=== PATIENT | male | born 1945 | race Caucasian/White ===

== ENCOUNTER → 2017-11-12 14:33 | Outpatient (CLI) | payer MEDICARE, OTHER, SELFPAY ==
[2017-11-12 16:22] LABS: Cholesterol 192 mg/dL (200); High Density Lipoprotein 59 mg/dL; Triglycerides 87 mg/dL; Very Low Density Lipoprotein 17 mg/dL (5-40)
== END ==
PROVIDERS: Family Provider Family Medicine; PCP Family Medicine; Visit Provider Family Medicine
DX: E78.00 Pure hypercholesterolemia, unspecified (principal)
CPT/HCPCS: 36415; 80061

== ENCOUNTER → 2020-05-26 11:23 | Outpatient (CLI) | payer MEDICARE, SELFPAY ==
[2020-05-26 12:16] LABS: Absolute Lymphocyte Count 1.87 X10^3/uL (0.83-4.51); Absolute Neutrophil Count 3.5 X10^3/uL (2.0-7.7); Basophil# 0.05 X10^3/uL; Basophil% 0.8 % (0-1); Eosinophil# 0.24 X10^3/uL; Eosinophils% 3.8 % (0-5); Hematocrit 47.4 % (40-54); Hemoglobin 15.8 g/dL (13.0-16.5); Lymphocyte # 1.87 X10^3/ul (4.0); Lymphocyte % 29.6 % (19-41); Mean Corp Hgb Conc 33.3 g/dL (32-36); Mean Corpuscular Hgb 31.6 pg (27.0-32.0); Mean Corpuscular Volume 94.8 fL (80-94); Monocyte# 0.63 X10^3/uL; NRBC Flagged by Analyzer 0 % (0-5); Neutrophil # 3.51 X10^3/uL (2.7-7.7); Neutrophil % 55.6 % (47-70); Platelet Count 212 K/mm3 (150-450); RBC Distribution Width CV 11.4 % (11.6-14.6); RBC Distribution Width SD 39.6 fl (35.1-43.9); White Blood Count 6.3 K/mm3 (4.4-11.0)
[2020-05-26 12:21] LABS: Color, Urine Yellow (Yellow); Glucose, Dipstick Normal (Normal); Ketone-Dipstick Negative (Negative); Leukocyte Esterase-Dipstick Negative /ul (Negative); Nitrite-Dipstick Negative (Negative); Occult Blood-Urine Negative /ul (Negative); Protein-Dipstick Negative (Negative); Urine Bilirubin Dipstick Negative (Negative); Urine Clarity Clear (Clear); Urine Urobilinogen Normal (Normal)
[2020-05-26 12:56] LABS: AST(SGOT) 17 U/L (15-37); Alanine Aminotransfer ALT/SGPT 22 U/L (16-61); Albumin, Serum 3.4 g/dL (3.2-5.0); Alkaline Phosphatase 83 U/L (45-117); Anion Gap 5 (5-15); BUN 15 mg/dL (7-18); BUN/Creat Ratio 18.9 RATIO (10-20); Calcium,Total 8.4 mg/dL (8.5-10.1); Chloride 107 mmol/L (98-107); Cholesterol 197 mg/dL (200); Creatinine, Serum 0.79 mg/dL (0.70-1.30); EST Glomerular Filtration Rate 102 mL/min (>60); Est Glom Filt Rate - Afr Amer 123 mL/min (>60); Globulin 3.3 g/dL (2.2-4.2); Glucose 98 mg/dL (74-106); High Density Lipoprotein 53 mg/dL; PSA,Total - Annual Screen 3.15 ng/mL (0.00-4.00); Protein, Total 6.7 g/dL (6.4-8.2); Sodium Level 138 mmol/L (136-145); Triglycerides 124 mg/dL; Very Low Density Lipoprotein 25 mg/dL (5-40)
== END ==
PROVIDERS: PCP Family Medicine; Referring Provider Family Medicine; Visit Provider Family Medicine
DX: Z00.00 Encounter for general adult medical examination without abnormal findings (principal); E78.5 Hyperlipidemia, unspecified; Z12.5 Encounter for screening for malignant neoplasm of prostate
CPT/HCPCS: 36415; 80053; 80061; 81002; 84153; 85025; G0103

== ENCOUNTER → 2021-06-01 11:01 | Outpatient (CLI) | payer MEDICARE, SELFPAY ==
[2021-06-01 11:39] LABS: Absolute Neutrophil Count 3.8 X10^3/uL (2.0-7.7); Basophil# 0.07 X10^3/uL; Basophil% 1.1 % (0-1); Eosinophil# 0.23 X10^3/uL; Eosinophils% 3.6 % (0-5); Hematocrit 46.7 % (40-54); Hemoglobin 16.2 g/dL (13.0-16.5); Lymphocyte % 23.6 % (19-41); Mean Corp Hgb Conc 34.7 g/dL (32-36); Mean Corpuscular Hgb 33.1 pg (27.0-32.0); Mean Corpuscular Volume 95.3 fL (80-94); Mean Platelet Vol. 10.3 fl (6.2-12.0); Monocyte# 0.73 X10^3/uL; Monocyte% 11.5 % (0-10); NRBC Flagged by Analyzer 0 % (0-5); Neutrophil # 3.82 X10^3/uL (2.7-7.7); Platelet Count 224 K/mm3 (150-450); RBC Distribution Width CV 11.7 % (11.6-14.6); RBC Distribution Width SD 40.8 fl (35.1-43.9); White Blood Count 6.4 K/mm3 (4.4-11.0)
[2021-06-01 12:26] LABS: AST(SGOT) 13 U/L (15-37); Alanine Aminotransfer ALT/SGPT 18 U/L (16-61); Albumin, Serum 3.6 g/dL (3.2-5.0); Alkaline Phosphatase 81 U/L (45-117); Anion Gap 7 (5-15); BUN 21 mg/dL (7-18); BUN/Creat Ratio 25.9 RATIO (10-20); Chloride 109 mmol/L (98-107); Cholesterol 220 mg/dL (200); Creatinine, Serum 0.81 mg/dL (0.70-1.30); EST Glomerular Filtration Rate 99 mL/min (>60); Est Glom Filt Rate - Afr Amer 120 mL/min (>60); Globulin 3.7 g/dL (2.2-4.2); Glucose 104 mg/dL (74-106); High Density Lipoprotein 57 mg/dL; PSA,Total - Annual Screen 3.72 ng/mL (0.00-4.00); Potassium 4.1 mmol/L (3.5-5.1); Protein, Total 7.3 g/dL (6.4-8.2); Sodium Level 140 mmol/L (136-145); Triglycerides 92 mg/dL; Very Low Density Lipoprotein 18 mg/dL (5-40)
== END ==
LOC: LAB 11:03
PROVIDERS: PCP Family Medicine; Visit Provider Family Medicine
DX: Z00.00 Encounter for general adult medical examination without abnormal findings (principal); E78.5 Hyperlipidemia, unspecified; Z12.5 Encounter for screening for malignant neoplasm of prostate
CPT/HCPCS: 36415; 80053; 80061; 84153; 85025; G0103

== ENCOUNTER 2022-03-04 13:19 | Emergency (ER) | payer MEDICARE, SELFPAY ==
[2022-03-04 13:21] VITALS: BP 140/96; PULSE 76; RESP 16; TEMP 36.7; O2SAT 96; BMI 28.3
--- NOTE | 2022-03-04 14:28 | ED.VIS.LOWEX ---
HPI History of Present Illness HPI Narrative: Atraumatic left lower femur and knee pain only with ambulation. Chief Complaint: Lower Extremity Injury Informant: patient Occured/Mechanism Mechanism/Context: No injury and No blunt trauma Onset/Context/Timing Onset: Weeks Context: Gradual Onset Timing: Intermittent Quality of Pain: Sharp Current Severity: Mild Maximum Severity: Mild Worsened by: Weightbearing. Associated Symptoms Associated Symptoms: Negative for Parasthesia, Weakness or Loss of Funtion Narrative Narrative: 76-year-old male history of prior left hip surgery about 12 years ago. 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 Said last 3 weeks he has had pain in his left lower thigh and knee with walking. He limps to ambulate. He denies any falls or trauma. He denies any fever or chills. He denies any swelling or redness. Otherwise he states has been feeling well. He is an active male. Prior similar symptoms: No Recent Illness/Hospitalization: No PFSH PFSH Medical History no medical history no medical history Home Medications hydrocodone-acetaminophen 5-325mg 5mg-325mg 1 - 2 tab PO Q4H PRN PRN Moderate Pain (4-6/10) ##30 04/12/15 [Rx Last Taken Unknown] rivaroxaban 10 mg tablet (Xarelto) 10 mg PO DAILY@0600 ##21 04/12/15 [Rx Last Taken Unknown] sennosides 8.6 mg-docusate sodium 50 mg tablet (Stool Softener-Stimulant Laxative) 2 tab PO BID ##0 04/12/15 [Rx Last Taken Unknown] Allergy/AdvReac Type Severity Reaction Status Date / Time No Known Allergies Allergy Verified 03/04/22 13:20 Social History Smoking Status: Former smoker ROS ROS ED ROS Narrative Denies recent illness. Review of Systems ROS Unobtainable: Denies due to encephalopathy Constitutional Constitutional ED: Denies chills Eyes Eyes: Denies blurry vision ENT ENT ED: Denies ear pain Cardiovascular Cardiovascular: Denies chest pain Respiratory/Chest Respiratory/Chest: Denies cough Gastrointestinal Gastrointestinal: Denies abdominal pain Genitourinary Genitourinary ED: Denies dysuria Musculoskeletal Musculoskeletal: Denies arthralgias Integumentary Denies abscess Neurologic Neurologic: Denies headache(s) Psychiatric Psychiatric: Denies anxiety Endocrine Endocrinology: Denies polydipsia Hematologic/Lymphatic Hematologic/Lymphatic: Denies easy bleeding Allergic/Immunologic Allergic/Immunologic ED: Denies mouth swelling EXAM Physical Exam Narrative Exam Narrative: 71-year-old male no acute distress. Exam normal. Heart lung abdominal exam normal. Left hip nontender full range of motion. No redness or swelling. He has full flexion-extension left knee. No effusion. ACL, PCL [place] also intact. He has dorsi plantarflexion of his ankle and foot on the left nontender no edema. His exam is normal lying in bed when he gets up to walk he limps and states the pain is in his distal lower thigh LLE. Const Vital Signs: 03/04/22 13:21 Temperature 98.0 F Temperature Source Temporal Pulse Rate 76 Respiratory Rate 16 Blood Pressure 140/96 H Blood Pressure Mean 110 Pulse Ox 96 Oxygen Delivery Method Room Air Positive well nourished and well developed; Negative for obese, cachectic, contractures or unkempt General Appearance ED: well developed; Negative for unkempt, cachectic or contractures Nutritional Appearance: Negative for cachectic or obese HEENT Reports moist mucous membranes normocephalic and atraumatic; Negative for trauma or tenderness Eyes PERRL Neck full ROM and supple Thyroid: Negative for tender Lymph Lymphatic: Negative for other Chest Wall inspection of chest normal and palpation of chest normal Chest: Negative for other Resp normal respiratory effort and clear to auscultation bilaterally Effort and Inspection: Negative for pain with movement Auscultation: Negative for rales or rhonchi Percussion: Negative for other Cardio regular rate, regular rhythm, S1 normal heart sound, S2 normal heart sound and no murmurs Rate: Negative for bradycardia Rhythm: Negative for abnormal rhythm GI non-tender, non-distended and no masses Inspection: Negative for abdominal distention Auscultation: normoactive bowel sounds Palpation: soft; Negative for tender Back/Spine no CVA tenderness General Back: Negative for CVA tenderness Cervical Spine: Negative for cervical spine tenderness Thoracic Spine / Upper Back: Negative for thoracic spinal tenderness Lumbar Spine / Lower Back: Negative for lumbar spinal tenderness Extremity normal to inspection and full ROM Extremity Narrative: Pain in his left lower thigh and knee with walking. But normal exam otherwise. General Extremety ED: Negative for cyanosis or edema General Extremity: Negative for cyanosis or edema Neuro oriented x3 and moves all extremities Sensorium / Orientation: alert, oriented to person, oriented to place and oriented to time; Negative for orientation impaired, confused, lethargic or stuporous Motor Exam: strength 5/5 throughout Psych mental status grossly normal Appearance: Negative for unkempt Speech: No other Mood & Affect: Negative for anxious Skin no wounds Lesions: no lesions Rashes: no rashes Trauma: Negative for abrasion MDM MDM MDM Narrative Medical decision making narrative: 76-year-old male complaining of left lower thigh and knee pain with ambulation only. He has had a prior hip replacement 12 years ago. Denies any fever or chills. Denies any redness or swelling. Exam normal except when he walks he limps. X-rays being obtained. Repeat exam unchanged at 4:42 PM. Patient be discharged to home with outpatient follow-up with orthopedics. Both his x-rays were negative. Radiography Diagnostic Testing: Clinical Impression(s) from Imaging Studies Femur X-Ray 03/04/22 14:40 IMPRESSION: Status post left total hip replacement. There is good alignment. Electronically Signed: Andi Cosby MD at 15:00 EDT , Knee X-Ray 03/04/22 14:40 IMPRESSION: Normal x-ray examination of the knee. Electronically Signed: Andi Cosby MD at 14:58 EDT , Left knee x-ray 4 view shows no acute abnormality interpreted by myself and the radiologist. Left hip x-ray shows no acute abnormality. Prosthetic hip. Read by both the radiologist and myself. Discharge Plan Triage Chief Complaint: Lower Extremity Injury ED Provider: Ryland Castro Dx/Rx/DC Orders Clinical Impression: Acute leg pain Instructions: ED Meniscal Injury Knee Poss Prescriptions: No Action hydrocodone-acetaminophen 1 TABLET tablet 1 - 2 tab PO Q4H PRN PRN (Reason: Moderate Pain (4-6/10)) Qty: 30 0RF Label Comments: pain sennosides-docusate sodium [Stool Softener-Stimulant Laxat] 1 TABLET tablet 2 tab PO BID Qty: 0 0RF Label Comments: stool softener rivaroxaban [Xarelto] 10 MG tablet 10 mg PO DAILY@0600 Qty: 21 0RF Label Comments: blood thinner Rx Instructions: CONT FOR 28 DAYS Primary Care Provider: Lb Donis Referrals: Lb Donis MD [Primary Care Provider] - As Needed Boyd Ruiz MD [STAFF PHYSICIAN] - As soon as possible Activity Restrictions/Additional Instructions: Your x-rays and exam today are normal. You may have a cartilage injury in your left knee that causes a limp when you walk. Follow-up with an orthopedic doctor for further evaluation of your knee. Disposition Disposition: Home, Self Care
--- NOTE | 2022-03-04 14:40 | RAD_ITS ---
STUDY: X-RAY - LEFT KNEE REASON FOR EXAM: Male, 76 years old. Atraumatic left knee pain TECHNIQUE: 4 view(s) of the knee. COMPARISON: None. FINDINGS: Normal visualized distal femur. Normal visualized proximal tibia and fibula. Normal proximal tibiofibular articulation. Normal medial femorotibial compartment. Normal lateral femorotibial compartment. Normal patellofemoral articulation. The soft tissue structures are unremarkable. RAD/Knee 4 or More Views IMPRESSION: Normal x-ray examination of the knee. Electronically Signed: Andi Cosby MD at 14:58 EDT ,
--- NOTE | 2022-03-04 14:40 | RAD_ITS ---
STUDY: X-RAY - LEFT FEMUR REASON FOR STUDY: Male, 76 years old. Pain TECHNIQUE: 4 view(s) of the femur. COMPARISON: None. FINDINGS: The patient is status post left total hip replacement. There is good alignment. Normal visualized soft tissue structure. RAD/Femur Min 2 Views IMPRESSION: Status post left total hip replacement. There is good alignment. Electronically Signed: Andi Cosby MD at 15:00 EDT ,
== END 2022-03-04 16:52 | disposition home or self-care (01) ==
PROVIDERS: Emergency Provider Emergency Medicine; PCP Family Medicine; Visit Provider Emergency Medicine
DX: M79.662 Pain in left lower leg (principal); Z87.891 Personal history of nicotine dependence
CPT/HCPCS: 73552; 73564; 99282

== ENCOUNTER → 2023-09-23 | Outpatient (CLI) | payer MEDICARE, SELFPAY ==
[2023-09-23 10:49] LABS: Absolute Neutrophil Count 4.6 X10^3/uL (2.0-7.7); Basophil# 0.08 X10^3/uL; Basophil% 1.1 % (0-1); Eosinophils% 2.8 % (0-5); Hematocrit 45.1 % (40-54); Hemoglobin 15.8 g/dL (13.0-16.5); Mean Corpuscular Hgb 32.4 pg (27.0-32.0); Mean Corpuscular Volume 92.4 fL (80-94); Mean Platelet Vol. 9.8 fl (6.2-12.0); Monocyte# 0.72 X10^3/uL; Monocyte% 10.1 % (0-10); NRBC Flagged by Analyzer 0 % (0-5); Neutrophil # 4.63 X10^3/uL (2.7-7.7); Neutrophil % 64.7 % (47-70); Platelet Count 204 K/mm3 (150-450); RBC Distribution Width CV 11.7 % (11.6-14.6); RBC Distribution Width SD 39.3 fl (35.1-43.9); Red Blood Count 4.88 M/mm3 (4.6-6.2); White Blood Count 7.2 K/mm3 (4.4-11.0)
[2023-09-23 11:02] LABS: Erythrocyte Sedimentation Rate 11 mm/hr (0-20)
[2023-09-23 11:20] LABS: CRP 3.07 mg/L (0.0-3.0)
== END | disposition home or self-care (01) ==
LOC: LAB 10:05
PROVIDERS: PCP Family Medicine; Referring Provider Physician Assistant; Visit Provider Physician Assistant
DX: M79.605 Pain in left leg (principal)
CPT/HCPCS: 36415; 85025; 85652; 86140

== ENCOUNTER → 2023-10-13 | Outpatient (CLI) | payer MEDICARE, SELFPAY ==
--- NOTE | 2023-10-13 09:07 | NM_ITS ---
CLINICAL: 77-year-old male with history of painful left hip arthroplasty. WHOLE BODY 99m Tc MDP RADIONUCLIDE BONE SCINTIGRAPHY COMPARISON: FINDINGS: Following the intravenous administration of 25.5 mCi of 99m Tc MDP, whole body bone images reveal: 1. Increased tracer uptake is identified in the right wrist, the bilateral hands, the acromioclavicular compartment of both shoulders, the region of the eighth thoracic vertebra, the elbows bilaterally. 2. The remaining skeletal structures are scintigraphically unremarkable with normal-appearing renal images and urinary bladder activity identified. Enhanced tracer distribution is defined in the left maxilla consistent with periodontal disease and/or periostitis. NM/Bone Scan Three Phase IMPRESSION: 1. The increase in radiopharmaceutical concentration defined in the right wrist, bilateral hands, the shoulders bilaterally, right-left elbows and eighth thoracic vertebra is most consistent with degenerative arthrosis. Plain film radiography correlation may be of benefit in the region of the thoracic spine. 2. There is no definitive typical scintigraphic evidence of skeletal metastatic disease. Electronically Signed: Bassem Fraire DO at 23:35 EST ,
--- OUTSIDE RECORDS SUMMARY | 2023-10-13 09:25 | XMS RPT_ITS | CCD ---
Author Name Unknown Address [address] [place] [address] Organization [facility] Care Team Providers Care Needle Loom Operator Helper Name Role Phone RD ALLRED Unavailable Unavailable ERICA, LB Unavailable Unavailable ERICA, LB Unavailable Unavailable ERICA, LB Martinez Unavailable Erica HARLEY, Lb Shafer Primary Care Provider Erica HARLEY, Lb Shafer Primary Care Provider Lb Maldonado MD Primary Care Provider LB MALDONADO Attending Unavailab le ERICA, LB SHAFER Primary Care Unavailab le ERICALB Attending Unavailab le ERICA, LB SHAFER Primary Care Unavailab le ERICA, LB SHAFER Attending Unavailab le ERICA, LB SHAFER Primary Care Unavailab le ERICALB Attending Unavailab le ERICA, LB SHAFER Primary Care Unavailab le Lb Maldonado MD Primary Care Provider LB MALDONADO Primary Care Unavailab le LB MALDONADO Referring Unavailab le LB MALDONADO Primary Care Unavailab GUILLERMO Mcneil Referring Unavailable LB MALDONADO Primary Care Unavailab le LB MALDONADO Primary Care Unavailab le Medications Current Medications Medication Drug Class(es) Dates Sig (Normalized) Sig (Original) methylPREDNISolone (1 source) Corticosteroid Start: 06-26-2023 End: 07-02-2023 methylPREDNISolone (MEDROL, SARAVANAN,) 4 mg Dose-Pack Follow dosing instructions, take with food. 21 tablet 0 06/26/2023 07/02/2023 Active Completed/Discontinued Medications Medication Drug Class(es) Dates Sig (Normalized) Sig (Original) [id number] 200 actuat albuterol 0.09 mg/actuat metered dose inhaler (4 sources) beta2-Adrenergic Agonist Start: 10-25-2016 End: 06-05-2022 take 2 puff(s) by inhalation every four hours as needed albuterol HFA (PROVENTIL HFA, VENTOLIN HFA) 90 mcg/actuation inhaler Indications: Wheezing , Cough Inhale 2 Puffs as instructed every 4 hours as needed. 1 Inhaler 0 08/19/2019 06/05/2022 Discontinued Problems Active Problems Problem Classification Problem Date Documented Da te Episodic/Chronic Administrative/social admission (2 sources) Advance directive discussed with patient; Translations: [Other specified counseling] Onset: 05-28-2023 05-28-2023 Episodic Disorders of lipid metabolism (13 sources) Pure hypercholesterolemi a; Translations: [Pure hypercholesterolemi a, unspecified] Onset: 04-02-2017 Chronic Hyperplasia of prostate (8 sources) Benign prostatic hyperplasia; Translations: [Benign prostatic hyperplasia without lower urinary tract symptoms] Onset: 04-02-2017 06-05-2022 Chronic Other connective tissue disease (1 source) Thigh pain; Translations: [Pain in left thigh] 03-17-2023 Episodic Other connective tissue disease (1 source) Pain in left lower limb; Translations: [Pain in left leg] 06-26-2023 Episodic Other screening for suspected conditions (not mental disorders or infectious disease) (8 sources) Raised prostate specific antigen; Translations: [Elevated prostate specific antigen [PSA]] Onset: 05-02-2017 12-04-2022 Episodic Residual codes; unclassified (1 source) Procedure not done; Translations: [Procedure and treatment not carried out, unspecified reason] Episodic Screening and history of mental health and substance abuse codes (1 source) Encounter for screening for depression; Translations: [Encounter for screening for depression] Onset: 05-28-2023 Episodic Unclassified (1 source) Results Onset: 07-22-2022 Past or Other Problems Problem Classification Problem Date Documented Da te Episodic/Chronic Immunizations and screening for infectious disease (7 sources) Patient encounter status; Translations: [Encounter for immunization] Onset: 06-05-2022 Episodic Other connective tissue disease (1 source) Pain in left thigh; Translations: [Acute thigh pain, left] Onset: 03-17-2023 Episodic Results Test Name Value Interpretation Reference Range Facil ity Vital Signs Date Time Vital Sign Value Performing Clinician Blas macias 06-26-2023 10:25-0500 Body temperature 97.59 [degF] Kiara Butt STUDENT FINANCIAL SERVICES COUNSELOR.OLAP DEVELOPER Work Phone: [facility] 06-26-2023 10:25-0500 Body weight 74.66 kg Kiara Butt STUDENT FINANCIAL SERVICES COUNSELOR.OLAP DEVELOPER Work Phone: [facility] 06-26-2023 10:25-0500 Diastolic blood pressure 82 mm[Hg] Kiara Butt STUDENT FINANCIAL SERVICES COUNSELOR.OLAP DEVELOPER Work Phone: [facility] 06-26-2023 10:25-0500 Heart rate 98 /min Kiara Butt STUDENT FINANCIAL SERVICES COUNSELOR.OLAP DEVELOPER Work Phone: [facility] 06-26-2023 10:25-0500 Respiratory rate 16 /min Kiara Butt STUDENT FINANCIAL SERVICES COUNSELOR.OLAP DEVELOPER Work Phone: [facility] 06-26-2023 10:25-0500 SaO2% (BldA) [Mass fraction] 96 % Kiara Butt STUDENT FINANCIAL SERVICES COUNSELOR.OLAP DEVELOPER Work Phone: [facility] 06-26-2023 10:25-0500 Systolic blood pressure 136 mm[Hg] Kiara Butt STUDENT FINANCIAL SERVICES COUNSELOR.OLAP DEVELOPER Work Phone: [facility] 05-28-2023 15:41-0400 Body height 160 cm Lb Maldonado MD Work Phone: [facility] 05-28-2023 15:41-0400 Body temperature 97.5 [degF] Lb Maldonado MD Work Phone: [facility] 05-28-2023 15:41-0400 Body weight 74.11 kg Lb Maldonado MD Work Phone: [facility] 05-28-2023 15:41-0400 Diastolic blood pressure 84 mm[Hg] Lb Maldonado MD Work Phone: [facility] 05-28-2023 15:41-0400 Heart rate 82 /min Lb Maldonado MD Work Phone: [facility] 05-28-2023 15:41-0400 Respiratory rate 16 /min Lb Maldonado MD Work Phone: [facility] 05-28-2023 15:41-0400 SaO2% (BldA) [Mass fraction] 96 % Lb Maldonado MD Work Phone: [facility] 05-28-2023 15:41-0400 Systolic blood pressure 132 mm[Hg] Lb Maldonado MD Work Phone: [facility] 03-17-2023 09:24-0400 Body temperature 97.81 [degF] Guillermo De Jesus MD Work Phone: [facility] 03-17-2023 09:24-0400 Body weight 72.48 kg Guillermo De Jesus MD Work Phone: [facility] 03-17-2023 09:24-0400 Diastolic blood pressure 82 mm[Hg] Guillermo De Jesus MD Work Phone: [facility] 03-17-2023 09:24-0400 Heart rate 80 /min Guillermo De Jesus MD Work Phone: [facility] 03-17-2023 09:24-0400 Respiratory rate 16 /min Guillermo De Jesus MD Work Phone: [facility] 03-17-2023 09:24-0400 SaO2% (BldA) [Mass fraction] 97 % Guillermo De Jesus MD Work Phone: [facility] 03-17-2023 09:24-0400 Systolic blood pressure 144 mm[Hg] Guillermo De Jesus MD Work Phone: [facility] 12-04-2022 15:33-0400 Body height 160 cm Lb Maldonado MD Work Phone: [facility] 12-04-2022 15:33-0400 Body temperature 97.5 [degF] Lb Maldonado MD Work Phone: [facility] 12-04-2022 15:33-0400 Body weight 73.14 kg Lb Maldonado MD Work Phone: [facility] 12-04-2022 15:33-0400 Diastolic blood pressure 70 mm[Hg] Lb Maldonado MD Work Phone: [facility] 12-04-2022 15:33-0400 Heart rate 63 /min Lb Maldonado MD Work Phone: [facility] 12-04-2022 15:33-0400 Respiratory rate 18 /min Lb Maldonado MD Work Phone: [facility] 12-04-2022 15:33-0400 SaO2% (BldA) [Mass fraction] 99 % Lb Maldonado MD Work Phone: [facility] 12-04-2022 15:33-0400 Systolic blood pressure 116 mm[Hg] Lb Maldonado MD Work Phone: [facility] 07-22-2022 15:28-0500 Body height 160 cm Lb Maldonado MD Work Phone: [facility] 07-22-2022 15:28-0500 Body temperature 98.2 [degF] Lb Maldonado MD Work Phone: [facility] 07-22-2022 15:28-0500 Body weight 76.2 kg Lb Maldonado MD Work Phone: [facility] 07-22-2022 15:28-0500 Diastolic blood pressure 72 mm[Hg] Lb Maldonado MD Work Phone: [facility] 07-22-2022 15:28-0500 Heart rate 70 /min Lb Maldonado MD Work Phone: [facility] 07-22-2022 15:28-0500 Respiratory rate 16 /min Lb Maldonado MD Work Phone: [facility] 07-22-2022 15:28-0500 SaO2% (BldA) [Mass fraction] 98 % Lb Maldonado MD Work Phone: [facility] 07-22-2022 15:28-0500 Systolic blood pressure 120 mm[Hg] Lb Maldonado MD Work Phone: [facility] 06-05-2022 14:44-0400 Body height 160 cm Lb Maldonado MD Work Phone: [facility] 06-05-2022 14:44-0400 Body temperature 97.59 [degF] Lb Maldonado MD Work Phone: [facility] 06-05-2022 14:44-0400 Body weight 74.39 kg Lb Maldonado MD Work Phone: [facility] 06-05-2022 14:44-0400 Diastolic blood pressure 78 mm[Hg] Lb Maldonado MD Work Phone: [facility] 06-05-2022 14:44-0400 Heart rate 78 /min Lb Maldonado MD Work Phone: [facility] 06-05-2022 14:44-0400 Respiratory rate 18 /min Lb Maldonado MD Work Phone: [facility] 06-05-2022 14:44-0400 SaO2% (BldA) [Mass fraction] 98 % Lb Maldonado MD Work Phone: [facility] 06-05-2022 14:44-0400 Systolic blood pressure 122 mm[Hg] Lb Maldonado MD Work Phone: [facility] 03-04-2022 11:53-0400 Body temperature 97.7 [degF] Javier Cabrera APRN.OLAP DEVELOPER Work Phone: [facility] 03-04-2022 11:53-0400 Body weight 73.48 kg Javier Cabrera STUDENT FINANCIAL SERVICES COUNSELOR.OLAP DEVELOPER Work Phone: [facility] 03-04-2022 11:53-0400 Diastolic blood pressure 74 mm[Hg] Javier Cabrera STUDENT FINANCIAL SERVICES COUNSELOR.OLAP DEVELOPER Work Phone: [facility] 03-04-2022 11:53-0400 Heart rate 70 /min Javier Cabrera STUDENT FINANCIAL SERVICES COUNSELOR.OLAP DEVELOPER Work Phone: [facility] 03-04-2022 11:53-0400 Respiratory rate 16 /min Javier Rick STUDENT FINANCIAL SERVICES COUNSELOR.OLAP DEVELOPER Work Phone: [facility] 03-04-2022 11:53-0400 SaO2% (BldA) [Mass fraction] 96 % Javier Rick STUDENT FINANCIAL SERVICES COUNSELOR.OLAP DEVELOPER Work Phone: [facility] 03-04-2022 11:53-0400 Systolic blood pressure 122 mm[Hg] Javier Cabrera STUDENT FINANCIAL SERVICES COUNSELOR.OLAP DEVELOPER Work Phone: [facility] Encounters Encounter Date Encounter Type Care Provider Facility Start: 06-26-2023 End: 06-26-2023 ambulatory LB MALDONADO Facility:[facility] Start: 06-26-2023 End: 06-26-2023 Patient encounter procedure Kiara Butt STUDENT FINANCIAL SERVICES COUNSELOR.OLAP DEVELOPER Work Phone: [facility] Procedures Date Procedure Procedure Detail Performing Clinician Start: 06-05-2022 INFLUENZA SEASONAL QUADRIVALENT HIGH DOSE AGE 65+ Lb Maldonado MD Work Phone: Plan of Treatment Date Care Activity Detail Author Start: 06-06-2027 LIPID SCREEN LIPID SCREEN [facility] Start: 06-03-2026 Diabetes Screening Diabetes Screenin [facility] Start: 06-06-2025 DIABETES SCREEN DIABETES SCREEN [facility] Start: 06-06-2025 Diabetes Screening Diabetes Screenin [facility] Start: 05-19-2024 LIPID SCREEN LIPID SCREEN [facility] Start: 05-28-2023 End: 07-28-2023 CBC W Auto Differential panel - Blood CBC + DIFF Lab Routine Screening for deficiency anemia Expected: 05/28/2023, Expires: 07/28/2023 [facility] Work Phone: Immunizations Immunization Date Immunization Notes Care Provider Robert mortensen 03-15-2023 pneumococcal (PCV20) vaccine, 20 valent (PREVNAR 20) Lb Maldonado MD Work Phone: [facility] 06-05-2022 influenza, high-dose , quadrivalent vaccine (FLUZONE HIGH DOSE QUADRIVALENT) Lb Maldonado MD Work Phone: [facility] 06-05-2022 influenza virus vacc ine, unspecified formulation Lb Maldonado MD Work Phone: [facility] 05-18-2019 influenza, injectabl e, quadrivalent, preservative free Lb Maldonado MD Work Phone: [facility] 05-18-2018 AS03 adjuvant Lb Maldonado MD Work Phone: [facility] 05-15-2017 influenza, injectabl e, quadrivalent, preservative free Lb Maldonado MD Work Phone: [facility] Payers Date Payer Category Payer Unknown [employer] S [employer] BL[employer] SHI[employer] ANTHEM MEDIBLUE O [id number] 2020-Present [phone] [id number] [place], [place] [address]O [id number] 2020 Unknown ANTHEM [employer] S [employer] BLUE SHIELD ANTHEM MEDIBLUE O [id number] 2020-Present [phone] [id number] [place], [place] [address] [id number] 2020 Unknown [id number] 2018 Medicare [id number] 2018 Unknown [id number] 1945 Unknown [id number] 1945 Unknown [id number] Social History Date Type Detail Facility Start: 10-25-2016 End: 12-04-2022 Tobacco smoking status NHIS Ex-smoker [facility] Start: 10-25-2016 End: 12-04-2022 Tobacco use and exposure Smokeless tobacco non-user [facility] Start: 1945 Sex Assigned At Not on file [facility] Start: 02-22-2022 End: 07-22-2022 Exposure to SARS-CoV-2 (event) Not sure [facility] History of tobacco use Current smoker [facility] Start: 06-05-2022 End: 06-26-2023 Alcohol intake Current drinker of alcohol (finding) [facility] Start: 06-05-2022 History SDOH Alcohol Frequency 3 [facility] Start: 06-05-2022 History SDOH Alcohol Std Drinks 1 [facility] Start: 06-05-2022 History SDOH Social Connections Phone 5 [facility] Start: 06-05-2022 History SDOH Social Connections Membership 2 [facility] Start: 06-05-2022 Alcohol Comment occasionaly [facility] History of tobacco use Passive smoker [facility] Start: 06-05-2022 End: 05-28-2023 History of Social function [facility] Start: 06-05-2022 End: 05-28-2023 Social connection and isolation panel [facility] Attends [employer] Not on file C [facility] Do you belong to any clubs or organizations such as druze groups, unions, fraternal or athletic groups, or school groups? No [facility] Are you now , , , , never or living with a partner? [facility] How often to you hav e a drink containing alcohol? 2-4 times a month [facility] How many standard dr inks containing alcohol do you have on a typical day? 1 or 2 [facility] How often do you hav e 6 or more drinks on 1 occasion? Never [facility] Do you feel stress - tense, restless, nervous, or anxious, or unable to sleep at night because your mind is troubled all the time - these days [OSQ] Not at all [facility] (I/We) worried whearelis er (my/our) food would run out before (I/we) got money to buy more. Never true [facility] How often to you hav e a drink containing alcohol? 2-3 time sa week [facility] Do you feel stress - tense, restless, nervous, or anxious, or unable to sleep at night because your mind is troubled all the time - these days [OSQ] To some extent [facility] Clinical Notes 03-04-2022 to 06-26-2023 Kiara Butt APRN.OLAP DEVELOPER - 06/26/2023 10:45 AM Mae Mcclelland LPN - 05/28/2023 4:00 PM Lb Last MD - 05/28/2023 3:56 PM Guillermo Diego MD - 03/17/2023 9:33 AM EDT Note Date & Type Note Facility 06-26-2023 Note HNO ID: [id number] Author: Kiara Butt APRN.OLAP DEVELOPER Service: ? Author Type: Nurse Practitioner Type: Progress Notes Filed: 06/26/2023 10:50 AM Note Text: This note was created using NoteWriter. Subjective Melinda Mcnair is a 77 year old male. 77 year old male with PMH hyperlipidemia presents for leg pain. Acute on chronic (citing this has happened in past and seen for same) This bout started yesterday Left upper leg Denies trauma or injury Started as dull ache, progressed. Used Iced and rest Today is it improving, citing that is what normally happens with prior bouts. He did not go to work today. The history is provided by the patient. No eyeglass inspector was used. Musculoskeletal Problem This is a recurrent problem. The current episode started yesterday. The problem occurs constantly. The problem has been gradually improving. Pertinent negatives include no abdominal pain, anorexia, arthralgias, change in bowel habit, chest pain, chills, congestion, coughing, diaphoresis, fatigue, fever, headaches, joint swelling, myalgias, nausea, neck pain, numbness, rash, sore throat, swollen glands, urinary symptoms, vertigo, visual change, vomiting or weakness. Nothing aggravates the symptoms. He has tried nothing for the symptoms. The treatment provided no relief. PAST MEDICAL HISTORY Diagnosis Date BPH (benign prostatic hyperplasia) Hyperlipidemia No past surgical history on file. ALLERGIES Patient has no known allergies. MEDICATIONS Ibuprofen 200 mg cap Take by mouth. methylPREDNISolone (MEDROL, SARAVANAN,) 4 mg Dose-Pack Follow dosing instructions, take with food. cyclobenzaprine (FLEXERIL) 10 mg tablet Take 1 tablet by mouth three times a day as needed for muscle spasm. No family history on file. Social History Tobacco Use Smoking status: Former Passive exposure: Past Smokeless tobacco: Never Vaping Use Vaping Use: Never used Substance Use Topics Alcohol use: Yes Comment: occasionaly Drug use: Not Currently Review of Systems Constitutional: Negative for chills, diaphoresis, fatigue and fever. HENT: Negative for congestion and sore throat. Respiratory: Negative for apnea, cough, choking and chest tightness. Cardiovascular: Negative for chest pain. Gastrointestinal: Negative for abdominal pain, anorexia, change in bowel habit, nausea and vomiting. Musculoskeletal: Negative for arthralgias, joint swelling, myalgias and neck pain. Skin: Negative for color change, pallor and rash. Allergic/Immunologic: Negative for food allergies and immunocompromised state. Neurological: Negative for vertigo, weakness, numbness and headaches. Hematological: Negative for adenopathy. Does not bruise/bleed easily. Psychiatric/Behavioral: Negative for agitation and behavioral problems. Objective BP 136/82 Pulse 98 Temp 36.4 ?C (97.6 ?F) Resp 16 Wt 74.7 kg (164 lb 9.6 oz) SpO2 96% BMI 29.16 kg/m? Physical Exam Vitals and nursing note reviewed. Constitutional: General: He is not in acute distress. Appearance: Normal appearance. He is not ill-appearing, toxic-appearing or diaphoretic. HENT: Head: Normocephalic and atraumatic. Right Ear: External ear normal. Left Ear: External ear normal. Nose: Nose normal. No congestion or rhinorrhea. Mouth/Throat: Mouth: Mucous membranes are moist. Pharynx: Oropharynx is clear. No oropharyngeal exudate or posterior oropharyngeal erythema. Eyes: General: Right eye: No discharge. Left eye: No discharge. Extraocular Movements: Extraocular movements intact. Conjunctiva/sclera: Conjunctivae normal. Pupils: Pupils are equal, round, and reactive to light. Cardiovascular: Rate and Rhythm: Normal rate and regular rhythm. Pulses: Normal pulses. Heart sounds: Normal heart sounds. No murmur heard. No friction rub. No gallop. Pulmonary: Effort: Pulmonary effort is normal. No respiratory distress. Breath sounds: Normal breath sounds. No stridor. No wheezing, rhonchi or rales. Chest: Chest wall: No tenderness. Abdominal: General: Abdomen is flat. There is no distension. Palpations: Abdomen is soft. There is no mass. Tenderness: There is no abdominal tenderness. There is no guarding or rebound. Hernia: No hernia is present. Musculoskeletal: General: No swelling, tenderness, deformity or signs of injury. Normal range of motion. Cervical back: Normal range of motion and neck supple. No rigidity or tenderness. Right lower leg: No edema. Left lower leg: No edema. Comments: Left upper thigh and femur with no ecchymosis. No swelling. No erythema. No redness No TTP Ambulatory Lymphadenopathy: Cervical: No cervical adenopathy. Skin: General: Skin is warm and dry. Capillary Refill: Capillary refill takes less than 2 seconds. Coloration: Skin is not jaundiced or pale. Findings: No bruising, lesion or rash. Neurological: General: No focal deficit present. Menta (more content not included)... [facility] 06-26-2023 History of Present illness Narrative This note was created using [employer]. Subjective Melinda Mcnair is a 77 year old male. 77 year old male with PMH hyperlipidemia presents for leg pain. Acute on chronic (citing this has happened in past and seen for same) This bout started yesterday Left upper leg Denies trauma or injury Started as dull ache, progressed. Used Iced and rest Today is it improving, citing that is what normally happens with prior bouts. He did not go to work today. The history is provided by the patient. No eyeglass inspector was used. Musculoskeletal Problem This is a recurrent problem. The current episode started yesterday. The problem occurs constantly. The problem has been gradually improving. Pertinent negatives include no abdominal pain, anorexia, arthralgias, change in bowel habit, chest pain, chills, congestion, coughing, diaphoresis, fatigue, fever, headaches, joint swelling, myalgias, nausea, neck pain, numbness, rash, sore throat, swollen glands, urinary symptoms, vertigo, visual change, vomiting or weakness. Nothing aggravates the symptoms. He has tried nothing for the symptoms. The treatment provided no relief. PAST MEDICAL HISTORY Diagnosis Date BPH (benign prostatic hyperplasia) Hyperlipidemia No past surgical history on file. ALLERGIES Patient has no known allergies. MEDICATIONS Ibuprofen 200 mg cap Take by mouth. methylPREDNISolone (MEDROL, SARAVANAN,) 4 mg Dose-Pack Follow dosing instructions, take with food. cyclobenzaprine (FLEXERIL) 10 mg tablet Take 1 tablet by mouth three times a day as needed for muscle spasm. No family history on file. Social History Tobacco Use Smoking status: Former Passive exposure: Past Smokeless tobacco: Never Vaping Use Vaping Use: Never used Substance Use Topics Alcohol use: Yes Comment: occasionaly Drug use: Not Currently Review of Systems Constitutional: Negative for chills, diaphoresis, fatigue and fever. HENT: Negative for congestion and sore throat. Respiratory: Negative for apnea, cough, choking and chest tightness. Cardiovascular: Negative for chest pain. Gastrointestinal: Negative for abdominal pain, anorexia, change in bowel habit, nausea and vomiting. Musculoskeletal: Negative for arthralgias, joint swelling, myalgias and neck pain. Skin: Negative for color change, pallor and rash. Allergic/Immunologic: Negative for food allergies and immunocompromised state. Neurological: Negative for vertigo, weakness, numbness and headaches. Hematological: Negative for adenopathy. Does not bruise/bleed easily. Psychiatric/Behavioral: Negative for agitation and behavioral problems. Objective BP 136/82 Pulse 98 Temp 36.4 C (97.6 F) Resp 16 Wt 74.7 kg (164 lb 9.6 oz) SpO2 96% BMI 29.16 kg/m Physical Exam Vitals and nursing note reviewed. Constitutional: General: He is not in acute distress. Appearance: Normal appearance. He is not ill-appearing, toxic-appearing or diaphoretic. HENT: Head: Normocephalic and atraumatic. Right Ear: External ear normal. Left Ear: External ear normal. Nose: Nose normal. No congestion or rhinorrhea. Mouth/Throat: Mouth: Mucous membranes are moist. Pharynx: Oropharynx is clear. No oropharyngeal exudate or posterior oropharyngeal erythema. Eyes: General: Right eye: No discharge. Left eye: No discharge. Extraocular Movements: Extraocular movements intact. Conjunctiva/sclera: Conjunctivae normal. Pupils: Pupils are equal, round, and reactive to light. Cardiovascular: Rate and Rhythm: Normal rate and regular rhythm. Pulses: Normal pulses. Heart sounds: Normal heart sounds. No murmur heard. No friction rub. No gallop. Pulmonary: Effort: Pulmonary effort is normal. No respiratory distress. Breath sounds: Normal breath sounds. No stridor. No wheezing, rhonchi or rales. Chest: Chest wall: No tenderness. Abdominal: General: Abdomen is flat. There is no distension. Palpations: Abdomen is soft. There is no mass. Tenderness: There is no abdominal tenderness. There is no guarding or rebound. Hernia: No hernia is present. Musculoskeletal: General: No swelling, tenderness, deformity or signs of injury. Normal range of motion. Cervical back: Normal range of motion and neck supple. No rigidity or tenderness. Right lower leg: No edema. Left lower leg: No edema. Comments: Left upper thigh and femur with no ecchymosis. No swelling. No erythema. No redness No TTP Ambulatory Lymphadenopathy: Cervical: No cervical adenopathy. Skin: General: Skin is warm and dry. Capillary Refill: Capillary refill takes less than 2 seconds. Coloration: Skin is not jaundiced or pale. Findings: No bruising, lesion or rash. Neurological: General: No focal deficit present. Mental Status: He is alert and oriented to person, place, and time. Cranial Nerves: No cranial nerve deficit. Sensory: No sensory deficit. Motor: No weakness. Coordination: Coordination normal. Gait: Gait normal. Deep Tendon Reflexes: Reflexes normal. Psychiatric: Mood and Affect: Mood normal. Behavior: Behavior normal. Thought Content: Thought content normal. Assessment and Plan ASSESSMENT/PLAN: 1. Leg pain, left - ICD9: 729.5, ICD10: M79.605 History of same Seen by orthopedics for same. Started yesterday, improving today No red flags Recent xray femur negative RX Medrol Dose Pack and Flexeril F/U with PCP and or Kiara Butt APRN.[employer] DEVELOPER documented in this encounter [facility] 05-28-2023 Note HNO ID: [id number] Author: Mae Chen LPN Service: ? Author Type: LICENSED NURSE Type: Progress Notes Filed: 05/29/2023 8:29 AM Note Text: Patient in the office today for an annual Medicare Wellness exam. Patient would like to discuss with Dr. Maldonado any necessary vaccines today. No refills needed today. [employer] Hepatitis C Screening DTaP,Tdap,Td Vaccine(1 - Tdap) Shingrix Vaccine(1 of 2) Influenza Vaccine(1) Covid-19 Vaccine( season) Medicare Yearly Visit Current Outpatient Medications Medication Sig Ibuprofen 200 mg cap Take by mouth. No current facility-administered medications for this visit. Medications reviewed: Yes Melinda gets minimal exercise. He watches his diet for sodium, low fat and low cholesterol most of the time. End of Live Planning discussed including patients advanced directive wishes: Yes I am willing to follow Melinda advanced directives. Depression screen He in the past two weeks denies having felt down, depressed, hopeless, or with little interest or pleasure in doing things. Functional Ability/Safety Screen 1. Was the patient's timed Up and Go test unsteady or longer than 30 seconds? No 2. Does the patient need help with the phone, transportation, shopping,preparing meals, housework, laundry, medications or managing money? No 3. Does your home have rungs in the hallway, lack of grab bars in the bathroom, lack of handrails on the stairs or have poor lighting? No BP 132/84 Pulse 82 Temp (Src) 97.5 (Temporal) Resp 16 Ht 5' 3 (1.60m) Wt 163 lb 6 oz (74.1kg) SpO2 96% BMI 28.95 kg/(m2). Lb Maldonado MD [facility] 05-28-2023 Note HNO ID: [id number] Author: Lb Maldonado MD Service: ? Author Type: Physician Type: Progress Notes Filed: 05/29/2023 8:29 AM Note Text: Subjective Melinda Mcnair is a 77 year old male. Melinda presents today for his Medicare wellness visit. Review of Systems Constitutional: Negative. HENT: Negative. Eyes: Negative. Respiratory: Negative. Cardiovascular: Negative. Gastrointestinal: Negative. Endocrine: Negative. Genitourinary: Negative. Musculoskeletal: Negative. Skin: Negative. Allergic/Immunologic: Negative. Neurological: Negative. Hematological: Negative. Psychiatric/Behavioral: Negative. History reviewed. No pertinent surgical history. PAST MEDICAL HISTORY Diagnosis Date BPH (benign prostatic hyperplasia) Hyperlipidemia History reviewed. No pertinent family history. Social History Tobacco Use Smoking status: Former Passive exposure: Past Smokeless tobacco: Never Vaping Use Vaping Use: Never used Substance Use Topics Alcohol use: Yes Comment: occasionaly Drug use: Not Currently ALLERGIES No Known Allergies MEDICATIONS: Ibuprofen 200 mg cap Take by mouth. Allergies, past surgical history, family history and past medical history were reviewed per this encounter. Medications were reviewed and verified. Objective BP 132/84 (BP Site: Left Arm, BP Position: Sitting, BP Cuff Size: Large Adult) Pulse 82 Temp 36.4 ?C (97.5 ?F) (Temporal) Resp 16 Ht 160 cm (5' 3 ) Wt 74.1 kg (163 lb 6 oz) SpO2 96% BMI 28.94 kg/m? Physical Exam Vitals reviewed. Constitutional: Appearance: Normal appearance. HENT: Head: Normocephalic and atraumatic. Nose: Nose normal. Eyes: Extraocular Movements: Extraocular movements intact. Pupils: Pupils are equal, round, and reactive to light. Cardiovascular: Rate and Rhythm: Normal rate and regular rhythm. Pulmonary: Effort: Pulmonary effort is normal. Breath sounds: Normal breath sounds. Abdominal: General: Bowel sounds are normal. Palpations: Abdomen is soft. Musculoskeletal: General: Normal range of motion. Cervical back: Normal range of motion and neck supple. Skin: General: Skin is warm and dry. Capillary Refill: Capillary refill takes less than 2 seconds. Neurological: General: No focal deficit present. Mental Status: He is alert and oriented to person, place, and time. Mental status is at baseline. Psychiatric: Mood and Affect: Mood normal. Behavior: Behavior normal. Assessment and Plan Encounter Diagnosis ICD-10-CM 1. Wellness examination Z00.00 COMP METABOLIC PANEL 2. Counseling regarding advance directives and goals of care Z71.89 ADVANCE CARE PLAN DISCUSSION 3. Encounter for screening for depression Z13.31 DEPRESSION SCREENING/ASSESSMENT 4. Pure hypercholesterolemia E78.00 COMP METABOLIC PANEL LIPID PANEL BASIC 5. Screening for deficiency anemia Z13.0 CBC + DIFF 6. Screening PSA (prostate specific antigen) Z12.5 PSA/PROSTSPECAG SCRN All open preventative health maintenance topics discussed with patient in detail. This includes risks and benefits regarding vaccines, cancer screening, healthy life style, and diet. Lb Maldonado MD [facility] 05-28-2023 History of Present illness Narrative Patient in the office today for an annual Medicare Wellness exam. Patient would like to discuss with Dr. Maldonado any necessary vaccines today. No refills needed today. [employer] Hepatitis C Screening DTaP,Tdap,Td Vaccine(1 - Tdap) Shingrix Vaccine(1 of 2) Influenza Vaccine(1) Covid-19 Vaccine( season) Medicare Yearly Visit Current Outpatient Medications Medication Sig Ibuprofen 200 mg cap Take by mouth. No current facility-administered medications for this visit. Medications reviewed: Yes Melinda gets minimal exercise. He watches his diet for sodium, low fat and low cholesterol most of the time. End of Live Planning discussed including patients advanced directive wishes: Yes I am willing to follow Melinda advanced directives. Depression screen He in the past two weeks denies having felt down, depressed, hopeless, or with little interest or pleasure in doing things. Functional Ability/Safety Screen 1. Was the patient's timed Up and Go test unsteady or longer than 30 seconds? No 2. Does the patient need help with the phone, transportation, shopping,preparing meals, housework, laundry, medications or managing money? No 3. Does your home have rungs in the hallway, lack of grab bars in the bathroom, lack of handrails on the stairs or have poor lighting? No BP 132/84 Pulse 82 Temp (Src) 97.5 (Temporal) Resp 16 Ht 5' 3 (1.60m) Wt 163 lb 6 oz (74.1kg) SpO2 96% BMI 28.95 kg/(m^2). Lb Maldonado MD Subjective Melinda Mcnair is a 77 year old male. Melinda presents today for his Medicare wellness visit. Review of Systems Constitutional: Negative. HENT: Negative. Eyes: Negative. Respiratory: Negative. Cardiovascular: Negative. Gastrointestinal: Negative. Endocrine: Negative. Genitourinary: Negative. Musculoskeletal: Negative. Skin: Negative. Allergic/Immunologic: Negative. Neurological: Negative. Hematological: Negative. Psychiatric/Behavioral: Negative. History reviewed. No pertinent surgical history. PAST MEDICAL HISTORY Diagnosis Date BPH (benign prostatic hyperplasia) Hyperlipidemia History reviewed. No pertinent family history. Social History Tobacco Use Smoking status: Former Passive exposure: Past Smokeless tobacco: Never Vaping Use Vaping Use: Never used Substance Use Topics Alcohol use: Yes Comment: occasionaly Drug use: Not Currently ALLERGIES No Known Allergies MEDICATIONS: Ibuprofen 200 mg cap Take by mouth. Allergies, past surgical history, family history and past medical history were reviewed per this encounter. Medications were reviewed and verified. Objective BP 132/84 (BP Site: Left Arm, BP Position: Sitting, BP Cuff Size: Large Adult) Pulse 82 Temp 36.4 C (97.5 F) (Temporal) Resp 16 Ht 160 cm (5' 3 ) Wt 74.1 kg (163 lb 6 oz) SpO2 96% BMI 28.94 kg/m Physical Exam Vitals reviewed. Constitutional: Appearance: Normal appearance. HENT: Head: Normocephalic and atraumatic. Nose: Nose normal. Eyes: Extraocular Movements: Extraocular movements intact. Pupils: Pupils are equal, round, and reactive to light. Cardiovascular: Rate and Rhythm: Normal rate and regular rhythm. Pulmonary: Effort: Pulmonary effort is normal. Breath sounds: Normal breath sounds. Abdominal: General: Bowel sounds are normal. Palpations: Abdomen is soft. Musculoskeletal: General: Normal range of motion. Cervical back: Normal range of motion and neck supple. Skin: General: Skin is warm and dry. Capillary Refill: Capillary refill takes less than 2 seconds. Neurological: General: No focal deficit present. Mental Status: He is alert and oriented to person, place, and time. Mental status is at baseline. Psychiatric: Mood and Affect: Mood normal. Behavior: Behavior normal. Assessment and Plan Encounter Diagnosis ICD-10-CM 1. Wellness examination Z00.00 COMP METABOLIC PANEL 2. Counseling regarding advance directives and goals of care Z71.89 ADVANCE CARE PLAN DISCUSSION 3. Encounter for screening for depression Z13.31 DEPRESSION SCREENING/ASSESSMENT 4. Pure hypercholesterolemia E78.00 COMP METABOLIC PANEL LIPID PANEL BASIC 5. Screening for deficiency anemia Z13.0 CBC + DIFF 6. Screening PSA (prostate specific antigen) Z12.5 PSA/PROSTSPECAG SCRN All open preventative health maintenance topics discussed with patient in detail. This includes risks and benefits regarding vaccines, cancer screening, healthy life style, and diet. Lb Maldonado MD documented in this encounter [facility] 03-17-2023 Note HNO ID: [id number] Author: Barby Molina RT(R) Service: Radiology Author Type: Technologist Type: Progress Notes Filed: 03/17/2023 10:16 AM Note Text: Radiology Service Progress Note PATIENT NAME: Melinda Mcnair DATE OF SERVICE: March 17, 2023 TIME: 10:06 AM PATIENT IDENTITY VERIFICATION COMPLETED USING TWO (2) IDENTIFIERS: Name and Date of confirmed by patient verbally. FALL SCREENING: Has the patient had 2 falls in the last year or 1 fall with injury or currently using an Ambulatory Assistive Device (Walker, Cane, Wheelchair, Crutches, etc.)? Yes, Patient High Risk for Falls What interventions were put in place to prevent falls during this visit? Instructed Patient to Call for Help if Needed, Offered Assistance with Transfers/Clothing, and Increased Observations by Caregivers PATIENT GENDER DATA: Male PATIENT RELEVANT IMPLANT DATA REVIEWED: Yes RADIOLOGY DEPARTMENT: General X-ray: Exam(s) Completed: Lower Extremity X-Ray(s): Femur, Left PERIPHERAL IV DATA: Not applicable SIGNED BY: RT Brett(R) March 17, 2023 10:06 AM [facility] 03-17-2023 Note HNO ID: [id number] Author: Guillermo De Jesus MD Service: ? Author Type: Physician Type: Progress Notes Filed: 03/17/2023 11:00 AM Note Text: Patient presents with: Thigh Pain: left thigh pain x 2 days, felt like it locked up going up steps HPI: Left thigh pain: Duration: noticed going up steps 2 days ago Location: left anterior thigh Character: sharp, 8/10 with standing, 2/10 with rest Radiation: No. Aggravating: standing and walking Relieving: rest, improves after a few steps, needs cane for balance Pain relievers: Tylenol Associated: hip replacement Pertinent negatives: Denies numbness, bruising, swelling PAST MEDICAL HISTORY Diagnosis Date BPH (benign prostatic hyperplasia) Hyperlipidemia MEDICATIONS: Ibuprofen 200 mg cap Take by mouth. ALLERGIES: ALLERGIES No Known Allergies VITALS: BP 144/82 Pulse 80 Temp 36.6 ?C (97.8 ?F) Resp 16 Wt 72.5 kg (159 lb 12.8 oz) SpO2 97% BMI 28.31 kg/m? PE: Pleasant, in no acute distress. Leg: left. No erythema, effusion, or deformity. Full passive ROM without pain. Lower thigh discomfort with knee flexion and extension against resistance. Pain with weight bearing. No thigh tenderness with palpation. No crepitus. No greater trochanter or knee joint line tenderness. Stable to varus and valgus strain. Negative anterior drawer test. No pain with hip internal/external rotation. ASSESSMENT/PLAN: 1. Acute thigh pain, left - ICD9: 729.5, ICD10: M79.652 - XR FEMUR GENERAL 2V AP/LAT LEFT - no acute fracture or radiologic signs of hardware malfunction. Treat thigh strain with rest and OTC analgesia. He has a walker at home and will start using that. Written excuse from work today. He thinks he may take vacation the rest of the week. Follow up with PCP or orthopedics if not improving. Last ween at [facility] about 2 years ago. Guillermo De Jesus MD [facility] 03-17-2023 History of Present illness Narrative Patient presents with: Thigh Pain: left thigh pain x 2 days, felt like it locked up going up steps HPI: Left thigh pain: Duration: noticed going up steps 2 days ago Location: left anterior thigh Character: sharp, 8/10 with standing, 2/10 with rest Radiation: No. Aggravating: standing and walking Relieving: rest, improves after a few steps, needs cane for balance Pain relievers: Tylenol Associated: hip replacement Pertinent negatives: Denies numbness, bruising, swelling PAST MEDICAL HISTORY Diagnosis Date BPH (benign prostatic hyperplasia) Hyperlipidemia MEDICATIONS: Ibuprofen 200 mg cap Take by mouth. ALLERGIES: ALLERGIES No Known Allergies VITALS: BP 144/82 Pulse 80 Temp 36.6 C (97.8 F) Resp 16 Wt 72.5 kg (159 lb 12.8 oz) SpO2 97% BMI 28.31 kg/m PE: Pleasant, in no acute distress. Leg: left. No erythema, effusion, or deformity. Full passive ROM without pain. Lower thigh discomfort with knee flexion and extension against resistance. Pain with weight bearing. No thigh tenderness with palpation. No crepitus. No greater trochanter or knee joint line tenderness. Stable to varus and valgus strain. Negative anterior drawer test. No pain with hip internal/external rotation. ASSESSMENT/PLAN: 1. Acute thigh pain, left - ICD9: 729.5, ICD10: M79.652 - XR FEMUR GENERAL 2V AP/LAT LEFT - no acute fracture or radiologic signs of hardware malfunction. Treat thigh strain with rest and OTC analgesia. He has a walker at home and will start using that. Written excuse from work today. He thinks he may take vacation the rest of the week. Follow up with PCP or orthopedics if not improving. Last ween at [facility] about 2 years ago. Guillermo De Jesus MD documented in this encounter [facility] 12-04-2022 Note HNO ID: [id number] Author: Lb Maldonado MD Service: ? Author Type: Physician Type: Progress Notes Filed: 12/04/2022 4:01 PM Note Text: This note was created using [email or web address]. Subjective Melinda Mcnair is a 76 year old male.Patient presents today for follow-up for multiple medical problems. See list. His chronic medical problems been stable. He has no new complaints today. Review of Systems Constitutional: Negative. HENT: Negative. Eyes: Negative. Respiratory: Negative. Cardiovascular: Negative. Gastrointestinal: Negative. Endocrine: Negative. Genitourinary: Negative. Musculoskeletal: Negative. Skin: Negative. Allergic/Immunologic: Negative. Neurological: Negative. Hematological: Negative. Psychiatric/Behavioral: Negative. Objective BP 116/70 (BP Site: Left Arm, BP Position: Sitting, BP Cuff Size: Regular Adult) Pulse 63 Temp 36.4 ?C (97.5 ?F) (Temporal) Resp 18 Ht 160 cm (5' 3 ) Wt 73.1 kg (161 lb 4 oz) SpO2 99% BMI 28.56 kg/m? Physical Exam Vitals reviewed. Constitutional: Appearance: Normal appearance. HENT: Head: Normocephalic and atraumatic. Nose: Nose normal. Eyes: Extraocular Movements: Extraocular movements intact. Pupils: Pupils are equal, round, and reactive to light. Cardiovascular: Rate and Rhythm: Normal rate and regular rhythm. Pulmonary: Effort: Pulmonary effort is normal. Breath sounds: Normal breath sounds. Abdominal: General: Bowel sounds are normal. Palpations: Abdomen is soft. Musculoskeletal: General: Normal range of motion. Cervical back: Normal range of motion and neck supple. Skin: General: Skin is warm and dry. Capillary Refill: Capillary refill takes less than 2 seconds. Neurological: General: No focal deficit present. Mental Status: He is alert and oriented to person, place, and time. Mental status is at baseline. Psychiatric: Mood and Affect: Mood normal. Behavior: Behavior normal. Assessment and Plan Melinda was seen today for 6 month exam. Diagnoses and all orders for this visit: Pure hypercholesterolemia Benign prostatic hyperplasia without lower urinary tract symptoms Patient is doing well. Follow-up in 6 months. [facility] 12-04-2022 Note HNO ID: [id number] Author: Mae Chen LPN Service: ? Author Type: LICENSED NURSE Type: Progress Notes Filed: 12/04/2022 4:01 PM Note Text: Patient in office today for a 6 month exam. Patient denies any concerns at this time. Mae Chen LPN December 04, 2022 3:36 PM [facility] 12-04-2022 History of Present illness Narrative This note was created using [email or web address]. Subjective Melinda Mcnair is a 76 year old male.Patient presents today for follow-up for multiple medical problems. See list. His chronic medical problems been stable. He has no new complaints today. Review of Systems Constitutional: Negative. HENT: Negative. Eyes: Negative. Respiratory: Negative. Cardiovascular: Negative. Gastrointestinal: Negative. Endocrine: Negative. Genitourinary: Negative. Musculoskeletal: Negative. Skin: Negative. Allergic/Immunologic: Negative. Neurological: Negative. Hematological: Negative. Psychiatric/Behavioral: Negative. Objective BP 116/70 (BP Site: Left Arm, BP Position: Sitting, BP Cuff Size: Regular Adult) Pulse 63 Temp 36.4 C (97.5 F) (Temporal) Resp 18 Ht 160 cm (5' 3 ) Wt 73.1 kg (161 lb 4 oz) SpO2 99% BMI 28.56 kg/m Physical Exam Vitals reviewed. Constitutional: Appearance: Normal appearance. HENT: Head: Normocephalic and atraumatic. Nose: Nose normal. Eyes: Extraocular Movements: Extraocular movements intact. Pupils: Pupils are equal, round, and reactive to light. Cardiovascular: Rate and Rhythm: Normal rate and regular rhythm. Pulmonary: Effort: Pulmonary effort is normal. Breath sounds: Normal breath sounds. Abdominal: General: Bowel sounds are normal. Palpations: Abdomen is soft. Musculoskeletal: General: Normal range of motion. Cervical back: Normal range of motion and neck supple. Skin: General: Skin is warm and dry. Capillary Refill: Capillary refill takes less than 2 seconds. Neurological: General: No focal deficit present. Mental Status: He is alert and oriented to person, place, and time. Mental status is at baseline. Psychiatric: Mood and Affect: Mood normal. Behavior: Behavior normal. Assessment and Plan Melinda was seen today for 6 month exam. Diagnoses and all orders for this visit: Pure hypercholesterolemia Benign prostatic hyperplasia without lower urinary tract symptoms Patient is doing well. Follow-up in 6 months. Patient in office today for a 6 month exam. Patient denies any concerns at this time. Mae Chen LPN December 04, 2022 3:36 PM documented in this encounter [facility] 07-28-2022 Note HNO ID: [id number] Author: Lb Maldonado MD Service: ? Author Type: Physician Type: Progress Notes Filed: 07/28/2022 6:19 PM Note Text: This note was created using [email or web address]. Subjective Melinda Mcnair is a 76 year old male. Melinda presents today for follow-up for elevated cholesterol. His LDL was greater than 150. Review of Systems Constitutional: Negative. HENT: Negative. Eyes: Negative. Respiratory: Negative. Cardiovascular: Negative. Gastrointestinal: Negative. Endocrine: Negative. Genitourinary: Negative. Musculoskeletal: Negative. Skin: Negative. Allergic/Immunologic: Negative. Neurological: Negative. Hematological: Negative. Psychiatric/Behavioral: Negative. Objective BP 120/72 (BP Site: Right Arm, BP Position: Sitting, BP Cuff Size: Regular Adult) Pulse 70 Temp 36.8 ?C (98.2 ?F) (Temporal) Resp 16 Ht 160 cm (5' 3 ) Wt 76.2 kg (168 lb) SpO2 98% BMI 29.76 kg/m? Physical Exam Vitals reviewed. Constitutional: Appearance: Normal appearance. HENT: Head: Normocephalic and atraumatic. Nose: Nose normal. Eyes: Extraocular Movements: Extraocular movements intact. Pupils: Pupils are equal, round, and reactive to light. Cardiovascular: Rate and Rhythm: Normal rate and regular rhythm. Pulmonary: Effort: Pulmonary effort is normal. Breath sounds: Normal breath sounds. Abdominal: General: Bowel sounds are normal. Palpations: Abdomen is soft. Musculoskeletal: General: Normal range of motion. Cervical back: Normal range of motion and neck supple. Skin: General: Skin is warm and dry. Capillary Refill: Capillary refill takes less than 2 seconds. Neurological: General: No focal deficit present. Mental Status: He is alert and oriented to person, place, and time. Mental status is at baseline. Psychiatric: Mood and Affect: Mood normal. Behavior: Behavior normal. Assessment and Plan Melinda was seen today for results. Diagnoses and all orders for this visit: Mixed hyperlipidemia Patient is recommended to follow a low-fat low-cholesterol diet. Recheck lipids in 3 months [facility] 07-28-2022 History of Present illness Narrative This note was created using [email or web address]. Subjective Melinda Mcnair is a 76 year old male. Melinda presents today for follow-up for elevated cholesterol. His LDL was greater than 150. Review of Systems Constitutional: Negative. HENT: Negative. Eyes: Negative. Respiratory: Negative. Cardiovascular: Negative. Gastrointestinal: Negative. Endocrine: Negative. Genitourinary: Negative. Musculoskeletal: Negative. Skin: Negative. Allergic/Immunologic: Negative. Neurological: Negative. Hematological: Negative. Psychiatric/Behavioral: Negative. Objective BP 120/72 (BP Site: Right Arm, BP Position: Sitting, BP Cuff Size: Regular Adult) Pulse 70 Temp 36.8 C (98.2 F) (Temporal) Resp 16 Ht 160 cm (5' 3 ) Wt 76.2 kg (168 lb) SpO2 98% BMI 29.76 kg/m Physical Exam Vitals reviewed. Constitutional: Appearance: Normal appearance. HENT: Head: Normocephalic and atraumatic. Nose: Nose normal. Eyes: Extraocular Movements: Extraocular movements intact. Pupils: Pupils are equal, round, and reactive to light. Cardiovascular: Rate and Rhythm: Normal rate and regular rhythm. Pulmonary: Effort: Pulmonary effort is normal. Breath sounds: Normal breath sounds. Abdominal: General: Bowel sounds are normal. Palpations: Abdomen is soft. Musculoskeletal: General: Normal range of motion. Cervical back: Normal range of motion and neck supple. Skin: General: Skin is warm and dry. Capillary Refill: Capillary refill takes less than 2 seconds. Neurological: General: No focal deficit present. Mental Status: He is alert and oriented to person, place, and time. Mental status is at baseline. Psychiatric: Mood and Affect: Mood normal. Behavior: Behavior normal. Assessment and Plan Melinda was seen today for results. Diagnoses and all orders for this visit: Mixed hyperlipidemia Patient is recommended to follow a low-fat low-cholesterol diet. Recheck lipids in 3 months documented in this encounter [facility] 07-22-2022 Nurse Note Summary: Discuss l abs Melinda is here today to discuss his Cholesterol lab results, no issues. documented in this encounter [facility] 06-12-2022 Miscellaneous Notes Patient notified of results and recommendations. Transferred to scheduling Tanya Canseco LPN June 12, 2022 10:57 AM Message left for patient to call office at earliest convenience Tanya Canseco LPN June 12, 2022 9:30 AM ----- Message from Janay Ye APRN.OL[employer] DEVELOPER sent at 06/12/2022 8:46 AM EDT ----- Liver function, kidney function, blood count all normal. PSA normal for age. Cholesterol borderline high. I would like patient to schedule follow up to discuss statin medication documented in this encounter [facility] 06-05-2022 Note HNO ID: [id number] Author: Lb Maldonado MD Service: ? Author Type: Physician Type: Progress Notes Filed: 06/05/2022 3:52 PM Note Text: This note was created using LinPrimriter. Subjective Melnida Mcnair is a 76 year old male. Review of Systems Constitutional: Negative. HENT: Negative. Eyes: Negative. Respiratory: Negative. Cardiovascular: Negative. Gastrointestinal: Negative. Endocrine: Negative. Genitourinary: Negative. Musculoskeletal: Negative. Skin: Negative. Allergic/Immunologic: Negative. Neurological: Negative. Hematological: Negative. Psychiatric/Behavioral: Negative. Objective BP 122/78 (BP Site: Left Arm, BP Position: Sitting, BP Cuff Size: Large Adult) Pulse 78 Temp 36.4 ?C (97.6 ?F) (Temporal) Resp 18 Ht 160 cm (5' 3 ) Wt 74.4 kg (164 lb) SpO2 98% BMI 29.05 kg/m? Physical Exam Vitals reviewed. Constitutional: Appearance: Normal appearance. HENT: Head: Normocephalic and atraumatic. Nose: Nose normal. Eyes: Extraocular Movements: Extraocular movements intact. Pupils: Pupils are equal, round, and reactive to light. Cardiovascular: Rate and Rhythm: Normal rate and regular rhythm. Pulmonary: Effort: Pulmonary effort is normal. Breath sounds: Normal breath sounds. Abdominal: General: Bowel sounds are normal. Palpations: Abdomen is soft. Musculoskeletal: General: Normal range of motion. Cervical back: Normal range of motion and neck supple. Skin: General: Skin is warm and dry. Capillary Refill: Capillary refill takes less than 2 seconds. Neurological: General: No focal deficit present. Mental Status: He is alert and oriented to person, place, and time. Mental status is at baseline. Psychiatric: Mood and Affect: Mood normal. Behavior: Behavior normal. Assessment and Plan Melinda was seen today for medicare wellness exam. Diagnoses and all orders for this visit: Wellness examination - CBC + DIFF; Future - COMP METABOLIC PANEL; Future Encounter for immunization - INFLUENZA SEASONAL QUADRIVALENT HIGH DOSE AGE 65+ Pure hypercholesterolemia - COMP METABOLIC PANEL; Future - LIPID PANEL BASIC; Future Screening PSA (prostate specific antigen) - PSA/PROSTSPECAG SCRN; Future Screening for deficiency anemia - CBC + DIFF; Future Other orders - DEPRESSION SCREENING/ASSESSMENT [facility] 06-05-2022 Note HNO ID: [id number] Author: Tanya Canseco LPN Service: ? Author Type: LICENSED NURSE Type: Progress Notes Filed: 06/05/2022 3:52 PM Note Text: Medicare Yearly Visit No current outpatient medications on file. No current facility-administered medications for this visit. Medications reviewed: Yes Melinda denies regular aerobic exercise. He watches his diet for sodium, low fat and low cholesterol most of the time. End of Live Planning discussed including patients advanced directive wishes: No I am willing to follow Melinda advanced directives. Depression screen He in the past two weeks denies having felt down, depressed, hopeless, or with little interest or pleasure in doing things. Functional Ability/Safety Screen 1. Was the patient's timed Up and Go test unsteady or longer than 30 seconds? Yes 2. Does the patient need help with the phone, transportation, shopping,preparing meals, housework, laundry, medications or managing money? No 3. Does your home have rungs in the hallway, lack of grab bars in the bathroom, lack of handrails on the stairs or have poor lighting? Yes BP 122/78 Pulse 78 Temp (Src) 97.6 (Temporal) Resp 18 Ht 5' 3 (1.60m) Wt 164 lb (74.4kg) SpO2 98% BMI 29.06 kg/(m2). Lb Maldonado MD [facility] 06-05-2022 History of Present illness Narrative This note was created using LinPrimriter. Subjective Melinda Mcnair is a 76 year old male. Review of Systems Constitutional: Negative. HENT: Negative. Eyes: Negative. Respiratory: Negative. Cardiovascular: Negative. Gastrointestinal: Negative. Endocrine: Negative. Genitourinary: Negative. Musculoskeletal: Negative. Skin: Negative. Allergic/Immunologic: Negative. Neurological: Negative. Hematological: Negative. Psychiatric/Behavioral: Negative. Objective BP 122/78 (BP Site: Left Arm, BP Position: Sitting, BP Cuff Size: Large Adult) Pulse 78 Temp 36.4 C (97.6 F) (Temporal) Resp 18 Ht 160 cm (5' 3 ) Wt 74.4 kg (164 lb) SpO2 98% BMI 29.05 kg/m Physical Exam Vitals reviewed. Constitutional: Appearance: Normal appearance. HENT: Head: Normocephalic and atraumatic. Nose: Nose normal. Eyes: Extraocular Movements: Extraocular movements intact. Pupils: Pupils are equal, round, and reactive to light. Cardiovascular: Rate and Rhythm: Normal rate and regular rhythm. Pulmonary: Effort: Pulmonary effort is normal. Breath sounds: Normal breath sounds. Abdominal: General: Bowel sounds are normal. Palpations: Abdomen is soft. Musculoskeletal: General: Normal range of motion. Cervical back: Normal range of motion and neck supple. Skin: General: Skin is warm and dry. Capillary Refill: Capillary refill takes less than 2 seconds. Neurological: General: No focal deficit present. Mental Status: He is alert and oriented to person, place, and time. Mental status is at baseline. Psychiatric: Mood and Affect: Mood normal. Behavior: Behavior normal. Assessment and Plan Melinda was seen today for medicare wellness exam. Diagnoses and all orders for this visit: Wellness examination - CBC + DIFF; Future - COMP METABOLIC PANEL; Future Encounter for immunization - INFLUENZA SEASONAL QUADRIVALENT HIGH DOSE AGE 65+ Pure hypercholesterolemia - COMP METABOLIC PANEL; Future - LIPID PANEL BASIC; Future Screening PSA (prostate specific antigen) - PSA/PROSTSPECAG SCRN; Future Screening for deficiency anemia - CBC + DIFF; Future Other orders - DEPRESSION SCREENING/ASSESSMENT Medicare Yearly Visit No current outpatient medications on file. No current facility-administered medications for this visit. Medications reviewed: Yes Melinda denies regular aerobic exercise. He watches his diet for sodium, low fat and low cholesterol most of the time. End of Live Planning discussed including patients advanced directive wishes: No I am willing to follow Melinda advanced directives. Depression screen He in the past two weeks denies having felt down, depressed, hopeless, or with little interest or pleasure in doing things. Functional Ability/Safety Screen 1. Was the patient's timed Up and Go test unsteady or longer than 30 seconds? Yes 2. Does the patient need help with the phone, transportation, shopping,preparing meals, housework, laundry, medications or managing money? No 3. Does your home have rungs in the hallway, lack of grab bars in the bathroom, lack of handrails on the stairs or have poor lighting? Yes BP 122/78 Pulse 78 Temp (Src) 97.6 (Temporal) Resp 18 Ht 5' 3 (1.60m) Wt 164 lb (74.4kg) SpO2 98% BMI 29.06 kg/(m^2). Lb Maldonado MD documented in this encounter [facility] 03-04-2022 History of Present illness Narrative Nontoxic-appearing male presents urgent care chief complaint left thigh pain. Duration of symptoms transient over the last 2 weeks. Patient states the last 2 days pain has dramatically increased. Rates pain 8 out of 10 sitting states if he tries to put any weight on his leg is 10 out of 10. States he is unable to walk today. History of hip replacement. He denies any known injuries. States leg is becoming numb. States thigh feels slightly swollen. With patient's presenting symptoms I recommend patient be seen in ED or by PCP for further evaluation care. Patient/caregiver verbalized understand agrees with plan of care. Javier Cabrera APRN.[place] documented in this encounter [facility] Wellness examination- Primary Encounter for immunization Need for other specified prophylactic vaccination against single bacterial disease Pure hypercholesterolemia Screening PSA (prostate specific antigen) Special screening for malignant neoplasm of prostate Screening for deficiency anemia Screening for other and unspecified deficiency anemia [facility] Diagnosis Mixed hyperlipidemia- Primary [facility] Diagnosis Pure hypercholesterolemia- Primary Benign prostatic hyperplasia without lower urinary tract symptoms [facility] Diagnosis Acute thigh pain, left- Primary [facility] Diagnosis Wellness examination- Primary Counseling regarding advance directives and goals of care Encounter for screening for depression Pure hypercholesterolemia Screening for deficiency anemia Screening for other and unspecified deficiency anemia Screening PSA (prostate specific antigen) Special screening for malignant neoplasm of prostate [facility] Diagnosis Leg pain, left- Primary Pain in limb [facility] Diagnostic Procedure Only (Urgent) - Closed Specialty Diagnoses / Procedures Referred By Contac t Referred To Contact XR IMAGING Diagnoses Acute thigh pain, left Procedures XR FEMUR GENERAL 2V AP/LAT LEFT RADIOLOGIC EXAMINATION FEMUR MINIMUM 2 VIEWS Guillermo De Jesus MD [address] [place] [address] Xr Imaging Referral ID Status Reason Start Date Expiration Date V isits Requested Visits Authorized [id number] Closed Auto-Generate d Referral 03/17/2023 04/15/2024 1 1 [facility] Summary Purpose Family History No Family History Records FoundNo Family History Records FoundNo Family History Records FoundNo Family History Records Found Advance Directives No Advanced Directives Records FoundNo Advanced Directives Records FoundNo Advanced Directives Records FoundNo Advanced Directives Records Found Reason for Referral Specialty Diagnoses / Procedures Referred By Contjesus manuel t Referred To Contact Kiara Butt APRN.CNP [address] [place] [address] Referral ID Status Reason Start Date Expiration Date V isits Requested Visits Authorized [id number] Authorized 03/27/2023 06/25/2024 1 1 Additional Source Comments (unrecognized sect ion and content) No Status Records FoundNo Status Records FoundNo Status Records FoundNo Status Records Found INFORMATION SOURCE (unrecogn ized section and content) DATE CREATED AUTHOR AUTHOR'S ORGANIZ ATION 05/26/2019 [facility] DATE CREATED AUTHOR AUTHOR'S ORGANIZ ATION 05/30/2023 [facility] DATE CREATED AUTHOR AUTHOR'S ORGANIZ ATION 06/28/2023 [facility] Source Comments (unrecognize d section and content) In the event this informatio n is protected by the Federal Confidentiality of Alcohol and Drug Abuse Patient Records regulations: The Federal rules restrict any use of the information to criminally investigate or prosecute any alcohol or drug abuse patient.[facility] the event this information is protected by the Federal Confidentiality of Alcohol and Drug Abuse Patient Records regulations: The Federal rules restrict any use of the information to criminally investigate or prosecute any alcohol or drug abuse patient.[facility] the event this information is protected by the Federal Confidentiality of Alcohol and Drug Abuse Patient Records regulations: The Federal rules restrict any use of the information to criminally investigate or prosecute any alcohol or drug abuse patient.[facility] the event this information is protected by the Federal Confidentiality of Alcohol and Drug Abuse Patient Records regulations: The Federal rules restrict any use of the information to criminally investigate or prosecute any alcohol or drug abuse patient.[facility] the event this information is protected by the Federal Confidentiality of Alcohol and Drug Abuse Patient Records regulations: The Federal rules restrict any use of the information to criminally investigate or prosecute any alcohol or drug abuse patient.[facility] the event this information is protected by the Federal Confidentiality of Alcohol and Drug Abuse Patient Records regulations: The Federal rules restrict any use of the information to criminally investigate or prosecute any alcohol or drug abuse patient.[facility] the event this information is protected by the Federal Confidentiality of Alcohol and Drug Abuse Patient Records regulations: The Federal rules restrict any use of the information to criminally investigate or prosecute any alcohol or drug abuse patient.[facility] the event this information is protected by the Federal Confidentiality of Alcohol and Drug Abuse Patient Records regulations: The Federal rules restrict any use of the information to criminally investigate or prosecute any alcohol or drug abuse patient.[facility] Reason for Visit (unrecogniz ed section and content) Reason Comments Medicare Wellness Exam Reason Comments Results Reason Comments Results Discuss Cholesterol Reason Comments 6 Month Exam Reason Comments Thigh Pain left thigh pain x 2 days, felt like it locked up going up steps Reason Comments Musculoskeletal Problem Left leg pain on and off can not put pressure on it. 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 Operator Helper Relationship Specialty Start Date End Date Lb Maldonado MD PCP - General Family Medicine 10/25/16 Needle Loom Operator Helper Relationship Specialty Start Date End Date Lb Maldonado MD PCP - General Family Medicine 10/25/16 Needle Loom Operator Helper Relationship Specialty Start Date End Date Lb Maldonado MD PCP - General Family Medicine 10/25/16 Needle Loom Operator Helper Relationship Specialty Start Date End Date Lb Maldonado MD PCP - General Family Medicine 10/25/16 Needle Loom Operator Helper Relationship Specialty Start Date End Date Lb Maldonado MD PCP - General Family Medicine 10/25/16 FOR RECORDS PERTAINING TO PATIENTS WHO ARE OR HAVE BEEN ENROLLED IN A CHEMICAL DEPENDENCY/SUBSTANCEABUSE PROGRAM, SOME INFORMATION MAY BE OMITTED. This clinical summary was aggregated from multiple sources. Caution should be exercised in using it in the provision of clinical care. This summary normalizes information from multiple sources, and as a consequence, information in this document may materially change the coding, format and clinical context of patient data. In addition, data may be omitted in some cases. CLINICAL DECISIONS SHOULD BE BASED ON THE PRIMARY CLINICAL RECORDS. [facility]. provides no warranty or guarantee of the accuracy or completeness of information in this document.
== END | disposition home or self-care (01) ==
PROVIDERS: PCP Family Medicine; Referring Provider Specialist; Visit Provider Specialist
DX: M51.36 Other intervertebral disc degeneration, lumbar region (principal); M79.605 Pain in left leg; Z96.642 Presence of left artificial hip joint
CPT/HCPCS: 78315; A9503